=== PATIENT | female | born 1965 | race Caucasian/White ===

== ENCOUNTER 2024-07-28 13:29 | Emergency (ER) | payer SELFPAY ==
[~2024-07-28] VITALS: Ht 160 cm; Wt 85.0 kg
[2024-07-28 13:33] VITALS: TEMP 97.6; O2SAT 100
[2024-07-28 15:08] VITALS: BP 155/74; PULSE 54; RESP 16
[2024-07-28] MEDS: IBUPROFEN 600MG TABLET PO ONE (15:08)
[2024-07-28] MEDS: METHOCARBAMOL 500MG TABLET PO ONE (15:08)
[2024-07-28] MEDS ORDERED: METH-653 MT (16:21)
[2024-07-28] MEDS ORDERED: IBUP-2029 MT (16:21)
== END 2024-07-28 17:35 | disposition home or self-care (01) ==
LOC: ER 13:29
DX: S33.5XXA Sprain of ligaments of lumbar spine, initial encounter (principal); S83.91XA Sprain of unspecified site of right knee, initial encounter; M79.662 Pain in left lower leg; W01.0XXA Fall on same level from slipping, tripping and stumbling without subsequent striking against object, initial encounter; Y93.89 Activity, other specified; Y92.89 Other specified places as the place of occurrence of the external cause; Y99.8 Other external cause status
CPT/HCPCS: 72100; 73562; 99284